=== PATIENT | male | born 1965 | race Two or more races ===

== ENCOUNTER 2016-10-19 14:03 | Emergency (ER) | payer MEDICAID ==
[~2016-10-19] VITALS: Ht 167.6 cm; Wt 80.7 kg
[2016-10-19 14:44] LABS: Basophils # (auto) 0 uL; Basophils % (auto) 0.5 % (0.0-2.0); Eosinophils # (auto) 0.2 uL; Eosinophils % (auto) 2.4 % (0.0-7.0); Hematocrit 44.8 % (41.0-53.0); Hemoglobin 15.1 g/dL (13.5-17.5); Lymphocytes # (auto) 2.7 uL; Lymphocytes % (auto) 27.8 % (10.0-50.0); Mean Corpuscular Hemoglobin 31.6 pg (28.0-32.0); Mean Corpuscular Hgb Conc. 33.7 g/dL (32.0-36.0); Mean Corpuscular Volume 93.8 fL (80.0-100.0); Mean Platelet Volume 7.5 fL (7.4-10.4); Monocytes # (auto) 0.5 uL; Monocytes % (auto) 4.9 % (0.0-12.0); Neutrophils # (auto) 6.1 uL; Neutrophils % (auto) 64.4 % (37.0-80.0); Platelet Count (auto) 322 10^3/uL (140-450); Red Cell Distribution Width 12.8 % (11.6-16.0); White Blood Cell 9.5 10^3/uL (4.4-10.8)
[2016-10-19 16:55] VITALS: BP 163/102
[2016-10-19] MEDS ORDERED: cloNIDine HCL 0.1 MG TAB PO ONE (17:15)
[2016-10-19] MEDS ORDERED: NALBUPHINE HCL 10 MG/1ml INJECTION IM ONE (17:15)
[2016-10-19] MEDS ORDERED: ONDANSETRON ODT 4 MG TAB PO ONE (17:15)
== END 2016-10-19 18:53 | disposition home or self-care (01) ==
LOC: ER 14:05
DX: I10 Essential (primary) hypertension (principal); F17.210 Nicotine dependence, cigarettes, uncomplicated
CPT/HCPCS: 36415; 70450; 85025; 96372; 99285; J2300; Q0162

== ENCOUNTER 2018-01-22 05:53 | Emergency (ER) | payer MEDICAID ==
[~2018-01-22] VITALS: Ht 167.6 cm; Wt 81.6 kg
[~2018-01-22 05:53] MED LIST: LISI-646 PO
[2018-01-22 06:47] LABS: Urine Bacteria NONE SEEN /hpf (None Seen); Urine Blood Negative /uL (Negative); Urine Specific Gravity 1.001 (1.001-1.035); Urine WBC <1 /hpf (0 - 3)
[2018-01-22] MEDS ORDERED: SODIUM CHLORIDE 0.9% 1,000 ML IV ONE (07:58)
[2018-01-22] MEDS ORDERED: KETOROLAC TROMETH 30 MG/ML 1ML VIAL IV ONE (08:00)
[2018-01-22] MEDS ORDERED: PROMETHAZINE HCL 25 MG/ML 1ML IV PRN (08:00)
[2018-01-22 08:27] LABS: Basophils # (auto) 0 uL; Basophils % (auto) 0.6 % (0.0-2.0); Eosinophils # (auto) 0.4 uL; Eosinophils % (auto) 5.6 % (0.0-7.0); Hematocrit 43.9 % (41.0-53.0); Hemoglobin 15.4 g/dL (13.5-17.5); Lymphocytes # (auto) 2.4 uL; Lymphocytes % (auto) 34.1 % (10.0-50.0); Mean Corpuscular Hemoglobin 33.2 pg (28.0-32.0); Mean Corpuscular Hgb Conc. 35.1 g/dL (32.0-36.0); Mean Corpuscular Volume 94.6 fL (80.0-100.0); Monocytes # (auto) 0.6 uL; Monocytes % (auto) 8.4 % (0.0-12.0); Neutrophils # (auto) 3.5 uL; Neutrophils % (auto) 51.3 % (37.0-80.0); Nucleated Red Blood Cells % 0.1 %; Platelet Count (auto) 238 10^3/uL (140-450); Red Blood Cells 4.64 10^6/uL (4.5-5.90); Red Cell Distribution Width 12.4 % (11.8-14.3); White Blood Cell 6.9 10^3/uL (4.4-10.8)
[2018-01-22 08:37] LABS: Magnesium 2.7 mg/dL (1.6-2.6)
[2018-01-22 08:44] LABS: Albumin 3.9 g/dL (3.4-5.0); BUN/Creatinine Ratio 14.6; Bilirubin, Total 1.4 mg/dL (0.2-1.0); Calcium 8.3 mg/dL (8.5-10.1); Potassium 3.8 mmol/L (3.5-5.1); Total Protein 7.3 g/dL (6.4-8.2)
[2018-01-22 11:04] VITALS: BP 126/78
== END 2018-01-22 11:59 | disposition home or self-care (01) ==
LOC: ER 05:55
DX: R10.9 Unspecified abdominal pain (principal); C64.1 Malignant neoplasm of right kidney, except renal pelvis; I10 Essential (primary) hypertension; I25.2 Old myocardial infarction; Z79.899 Other long term (current) drug therapy; Z87.891 Personal history of nicotine dependence
CPT/HCPCS: 36415; 74176; 80053; 81001; 83690; 83735; 85025; 96374; 99285; J1885; J7030

== ENCOUNTER 2019-05-27 08:30 | Emergency (ER) | payer MEDICAID ==
[~2019-05-27] VITALS: Ht 167.6 cm; Wt 80.7 kg
[2019-05-27 09:22] VITALS: BP 137/92
[2019-05-27] MEDS ORDERED: KETOROLAC TROMETH 60MG/2ML VIAL IM ONE (11:00)
== END 2019-05-27 11:17 | disposition home or self-care (01) ==
LOC: ER 08:30
DX: M76.42 Tibial collateral bursitis [Pellegrini-Stieda], left leg (principal); I10 Essential (primary) hypertension; I25.2 Old myocardial infarction; Z87.891 Personal history of nicotine dependence
CPT/HCPCS: 29505; 73562; 96372; 99283; J1885

== ENCOUNTER 2021-07-20 04:58 | Emergency (ER) | payer MEDICAID ==
[~2021-07-20] VITALS: Ht 167.6 cm; Wt 78.5 kg
[~2021-07-20 04:58] MED LIST changes: -LISI-646 PO; +LISI20TA28 PO
[2021-07-20 06:47] LABS: Urine WBC None Seen /hpf (0 - 3)
[2021-07-20 07:06] LABS: Urine Bacteria NONE SEEN /hpf (None Seen); Urine Blood Negative /uL (Negative); Urine Specific Gravity 1.018 (1.001-1.035)
[2021-07-20 09:36] LABS: Basophils # (auto) 0.1 10 ^3/uL (0-0.2); Basophils % (auto) 0.7 % (0.0-2.0); Eosinophils # (auto) 0.5 10 ^3/uL (0-0.8); Eosinophils % (auto) 5.7 % (0.0-7.0); Hematocrit 43.6 % (41.0-53.0); Hemoglobin 14.8 g/dL (13.5-17.5); Lymphocytes # (auto) 2.3 10 ^3/uL (0.4-5.4); Lymphocytes % (auto) 24.9 % (10.0-50.0); Mean Corpuscular Volume 94.2 fL (80.0-100.0); Monocytes # (auto) 0.6 10 ^3/uL (0-1.3); Monocytes % (auto) 6.7 % (0.0-12.0); Neutrophils # (auto) 5.6 10 ^3/uL (1.6-8.6); Red Blood Cells 4.63 10^6/uL (4.5-5.90); Red Cell Distribution Width 13.2 % (11.8-14.3); White Blood Cell 9.1 10^3/uL (4.4-10.8)
[2021-07-20 09:49] LABS: Albumin 3.8 g/dL (3.4-5.0); Calcium 8.3 mg/dL (8.5-10.1); Potassium 3.8 mmol/L (3.5-5.1)
[2021-07-20 09:52] LABS: BUN/Creatinine Ratio 17.1; Bilirubin, Total 0.7 mg/dL (0.2-1.0); Total Protein 7.3 g/dL (6.4-8.2)
[2021-07-20 12:00] VITALS: BP 158/88
== END 2021-07-20 12:33 | disposition home or self-care (01) ==
LOC: ER 04:58
DX: R10.9 Unspecified abdominal pain (principal); I10 Essential (primary) hypertension; I25.2 Old myocardial infarction; Z90.49 Acquired absence of other specified parts of digestive tract; Z87.891 Personal history of nicotine dependence; Z79.899 Other long term (current) drug therapy
CPT/HCPCS: 36415; 74176; 80053; 81001; 85025

== ENCOUNTER 2021-12-14 03:55 | Inpatient (IN) | payer MEDICAID ==
[~2021-12-14] VITALS: Ht 170.2 cm; Wt 79.4 kg
[2021-12-14] MEDS ORDERED: MORPHINE SULFATE 4 MG/ML SYR/VIAL IV ONE (05:00)
[2021-12-14] MEDS ORDERED: ONDANSETRON HCL 4 MG/2 ML VIAL IV ONE (05:00)
[2021-12-14] MEDS ORDERED: SODIUM CHLORIDE 0.9% 1,000 ML IV ONE (05:15)
[2021-12-14 05:39] LABS: Basophils # (auto) 0 10 ^3/uL (0-0.2); Basophils % (auto) 0.6 % (0.0-2.0); Eosinophils # (auto) 0.4 10 ^3/uL (0-0.8); Eosinophils % (auto) 5.2 % (0.0-7.0); Hematocrit 36.8 % (41.0-53.0); Hemoglobin 12.5 g/dL (13.5-17.5); Lymphocytes # (auto) 2.1 10 ^3/uL (0.4-5.4); Lymphocytes % (auto) 26.1 % (10.0-50.0); Mean Corpuscular Hemoglobin 31.8 pg (28.0-32.0); Mean Corpuscular Volume 93.5 fL (80.0-100.0); Monocytes # (auto) 0.8 10 ^3/uL (0-1.3); Monocytes % (auto) 9.8 % (0.0-12.0); Neutrophils # (auto) 4.7 10 ^3/uL (1.6-8.6); Neutrophils % (auto) 58.3 % (37.0-80.0); Nucleated Red Blood Cells % 0.1 %; Red Blood Cells 3.94 10^6/uL (4.5-5.90); Red Cell Distribution Width 12.7 % (11.8-14.3)
[2021-12-14 05:54] LABS: INR 0.92 (0.9-1.15); Partial Thromboplastin Time 24.9 sec (23.6-33.0)
[2021-12-14 05:57] LABS: Albumin 3.3 g/dL (3.4-5.0); BUN/Creatinine Ratio 23.2; Potassium 4.1 mmol/L (3.5-5.1)
[2021-12-14 05:59] LABS: Bilirubin, Total 0.7 mg/dL (0.2-1.0); Total Protein 6.4 g/dL (6.4-8.2)
[2021-12-14] MEDS ORDERED: ONDANSETRON HCL 4 MG/2 ML VIAL IV PRN (06:30)
[2021-12-14] MEDS ORDERED: SODIUM CHLORIDE 0.9% 1,000 ML IV SCH (06:30)
[2021-12-14] MEDS ORDERED: TEMAZEPAM 15 MG CAP PO PRN (06:30)
[2021-12-14] MEDS ORDERED: MORPHINE SULFATE INJ 2 MG/ml SYRG IV PRN (06:30)
[2021-12-14] MEDS ORDERED: HYDROcodone-ACET 5/325MG TAB PO PRN (06:30)
[2021-12-14] MEDS ORDERED: DOCUSATE SOD 100 MG CAP PO PRN (06:30)
[2021-12-14] MEDS ORDERED: ACETAMINOPHEN 325 MG TAB PO PRN (06:30)
[2021-12-14] MEDS ORDERED: LORazepam 0.5 MG TAB PO PRN (06:30)
[2021-12-14] MEDS ORDERED: ALUM & MAG HYDROX-SIMETH LIQ(MAALOX) 30 ML PO PRN (06:30)
[2021-12-14 07:06] LABS: Cholesterol 104 mg/dL (< 200)
[2021-12-14 07:09] LABS: HDL Cholesterol 31 mg/dL (40-59); LDL Cholesterol 71 mg/dL (< 100); Triglycerides 68 mg/dL (< 150)
[2021-12-14 07:58] LABS: Urine Amorphous Crystal FEW /hpf (None Seen); Urine Bacteria FEW /hpf (None Seen); Urine Blood Negative /uL (Negative); Urine Specific Gravity 1.023 (1.001-1.035); Urine WBC <1 /hpf (0 - 3)
[2021-12-14 08:11] LABS: Alcohol, Urine < 3.0 mg/dL (0-10); Amphetamine Screen, Urine NEGATIVE (NEGATIVE); Barbiturate Scree,Urine NEGATIVE (NEGATIVE); Benzodiazephine Screen, Urine NEGATIVE (NEGATIVE); Cannabinoid Screen, Urine NEGATIVE (NEGATIVE); Cocaine Screen, Urine NEGATIVE (NEGATIVE); Opiate Scree,Urine POSITIVE (NEGATIVE); Phencyclidine Screen, Urine NEGATIVE (NEGATIVE)
[2021-12-14 12:00] VITALS: BP 115/64
== END 2021-12-14 13:15 | disposition home or self-care (01) | DRG 384 ==
LOC: ER 03:55 → OVERFLOW 06:27
PROVIDERS: ADMIT Hospitalist; ATTEND Hospitalist
DX: S70.11XA Contusion of right thigh, initial encounter (principal); I10 Essential (primary) hypertension; T14.8XXA Other injury of unspecified body region, initial encounter; R58 Hemorrhage, not elsewhere classified; I25.2 Old myocardial infarction; R00.1 Bradycardia, unspecified; Z20.822 Contact with and (suspected) exposure to COVID-19; W01.0XXA Fall on same level from slipping, tripping and stumbling without subsequent striking against object, initial encounter; Y93.89 Activity, other specified; Y92.89 Other specified places as the place of occurrence of the external cause; Y99.8 Other external cause status; Z90.49 Acquired absence of other specified parts of digestive tract; Z83.3 Family history of diabetes mellitus; Z82.49 Family history of ischemic heart disease and other diseases of the circulatory system; Z85.9 Personal history of malignant neoplasm, unspecified
CPT/HCPCS: 36415; 74176; 80053; 80061; 80307; 81001; 84484; 85025; 85610; 85730; 96361; 96374; 96375; G0378; J2405

== ENCOUNTER 2024-07-16 06:45 | Emergency (ER) | payer MEDICAID ==
[~2024-07-16] VITALS: Ht 167.6 cm; Wt 83.7 kg
[~2024-07-16 06:45] MED LIST changes: -LISI20TA28 PO; +LISI20TA56 PO
[2024-07-16] MEDS: ACETAMINOPHEN 325 MG TAB PO ONE (08:02)
[2024-07-16] MEDS: CYCLOBENZAPRINE HCL 10 MG TAB PO ONE (08:02)
[2024-07-16] MEDS: KETOROLAC TROMETH 30 MG/ML 1ML VIAL IM ONE (08:03)
[2024-07-16 08:09] VITALS: BP 158/109; PULSE 64; RESP 18; TEMP 98.7; O2SAT 98
--- NOTE | 2024-07-16 08:13 | DVH ---
CLINICAL INFORMATION: 59 years old, Male; midline spine pain. TECHNIQUE: 3 views of the cervical spine were obtained. 2 views of the thoracic spine were obtained. COMPARISON: None FINDINGS: Cervical spine: Straightening of the normal cervical lordosis. Minimal anterolisthesis of C3 on C4. Minimal retrolisthesis of C5 on C6. Vertebral body heights are maintained. Posterior elements appear grossly intact. No evidence of acute fracture. Moderate to severe disc space narrowing at C4-C5, C5- C6, and C6-C7 with associated endplate sclerosis and endplate spurring. Multilevel moderate facet and uncinate hypertrophy. Prevertebral and paraspinal soft tissues appear unremarkable. Moderate atheros clerotic calcification of the carotid bifurcations. Thoracic spine: The upper thoracic vertebrae are partially obscured due to overlapping osseous struct ures on the lateral view. Vertebral body alignment is otherwise within normal limits. No significant spondylolisthesis. Vertebral body heights are maintained. Posterior elements appear intact. No evid ence of acute fracture. Multilevel moderate to severe disc space narrowing in the thoracic spine with associated endplate sclerosis and endplate spurring. Paraspinal soft tissues appear grossly unremark able. IMPRESSION: 1. Straightening of the normal cervical lordosis with spondylolisthesis of C3 on C4 and C5 on C6. 2. Degenerative disc disease and facet/uncinate disease of the cervical spine as detailed above. 3. Degenerative disc disease in the thoracic spine as detailed above.
[2024-07-16] MEDS ORDERED: CYCL-837 PO (08:41)
--- NOTE | 2024-07-16 08:41 | ED.PDOC ---
History of Present Illness HPI Comments 59M previously healthy presents with 3 days of midline achy neck pain 8/10 that radiates to the left side of his neck. Patient has any fever chills nausea vomiting diarrhea trauma. Chief Complaint: Neck Pain Time Seen by MD: 07:14 Primary Care Provider: DENIES Allergies: Coded Allergies: NO KNOWN ALLERGIES (Unverified , 05/27/19) Home Meds Reported Medications Lisinopril (Lisinopril) 20 Mg Tab, 20 MG PO DAILY for 30 Days, MG 12/28/17 Information Source: Patient Mode of Arrival: Ambulatory Past Medical History PAST MEDICAL HISTORY: Cancer, HTN, [place] Surgical History: Appendectomy Family History Family History: Unknown Social History Smoker: Quit Less Than 1 Year, Cigarettes, Less Than 1 Pack/Day Alcohol: Occasionally Drugs: Denies Drug Use Lives In: Home All Other Systems: Reviewed and Negative Physical Exam General Appearance: No Apparent Distress, Normal HEENT: Normal ENT Inspection, Pharynx Normal, TMs Normal Neck: Other (Lower cervical upper thoracic midline tenderness.) Respiratory: Chest Non-Tender, Lungs Clear, No Accessory Muscle Use, No Respiratory Distress, Normal Breath Sounds Cardiovascular: Regular Rate/Rhythm Breast Exam: Deferred Gastrointestinal: No Organomegaly, Non Tender, No Pulsatile Mass, Soft Genitalia: Deferred Pelvic: Deferred Rectal: Deferred Extremities: No calf tenderness, Normal capillary refill, Normal inspection, Normal range of motion, Non-tender, No pedal edema Neurologic: No Motor Deficits, Other (Positive Spurling Tessalon left) Cerebellar Function: NOT DONE Reflexes: NOT DONE Skin: Dry, Normal Color, Warm Lymphatic: No Adenopathy Was a procedure done? Was a procedure done?: No Differential Dx Considerations may include: Fracture, sprain, cervical radiculopathy X-Ray, Labs, Meds, VS Vital Signs Date Time Temp Pulse Resp B/P (MAP) Pulse Ox O2 Delivery O2 Flow Rate FiO2 07/16/24 08:09 64 18 98 Room Air 07/16/24 08:09 98.7 64 18 158/109 (125) 98 98.7 07/16/24 08:02 98.7 07/16/24 07:18 97.7 66 16 156/95 (115) 100 Current Medications Medications (Trade) Dose Ordered Sig/Abena Route Start Time Stop Time Status Last Admin Acetaminophen (Tylenol Tablet) 650 mg ONCE ONCE PO 07/16/24 07:30 07/16/24 07:31 DC 07/16/24 08:02 Ketorolac Tromethamine (Toradol Injection) 15 mg ONCE ONCE IM 07/16/24 07:30 07/16/24 07:31 DC 07/16/24 08:03 Cyclobenzaprine HCl (Flexeril Tablet) 10 mg ONCE ONCE PO 07/16/24 07:30 07/16/24 07:31 DC 07/16/24 08:02 Time of 1ST Reevaluation: 08:39 Reevaluation 1ST: Improved Patient Education/Counseling: Diagnosis, Treatment Family Education/Counseling: No Family Present Departure 1 Departure Time of Disposition: 08:40 (Patient likely with cervical radiculopathy. We will discharge patient home with outpatient follow up) Impression: Primary Impression: Cervical radiculopathy Disposition: 01 HOME / SELF CARE / HOMELESS Condition: Stable Referrals: EMMANUEL OTERO MD Additional Instructions: You have cervical radiculopathy. This is inflammation of your cervical nerve. For pain you can take the followinam: Ibuprofen 400mg with food Noon: Acetaminophen 1000mg 4pm: Ibuprofen 400mg with food 8pm: Acetaminophen 1000mg You were also prescribed muscle relaxers. Please take as directed. You can wear a soft collar for comfort. You were referred to neurology. Please call for an appointment. If your symptoms worsen or you have any other concerns then please return to the ER. e-Prescriptions Cyclobenzaprine Hcl (Cyclobenzaprine Hcl) 5 Mg Tab 1 TAB PO TID PRN for 5 Days, #15 TAB Prov: KADEN ROJAS MD 07/16/24 Discharged With: Self Critical Care Note Critical Care Time?: No Stability Stability form required: No KADEN ROJAS MD Jul 16, 2024 08:41
== END 2024-07-16 08:48 | disposition home or self-care (01) ==
LOC: ER 06:45
DX: M54.12 Radiculopathy, cervical region (principal); I10 Essential (primary) hypertension; I25.2 Old myocardial infarction; Z90.49 Acquired absence of other specified parts of digestive tract; Z87.891 Personal history of nicotine dependence
CPT/HCPCS: 72040; 72070; 96372; 99284; J1885